=== PATIENT | male | born 1930 | race Caucasian/White ===

== ENCOUNTER 2017-04-04 09:31 | Inpatient (IN) | payer OTHER ==
[~2017-04-04] VITALS: Ht 175.3 cm; Wt 85.8 kg
[2017-04-04] VITALS (9 sets, daily range): BP systolic 137–179; BP diastolic 75–96
--- NOTE | ~2017-04-04 | EKG ---
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
--- NOTE | ~2017-04-04 | 2DMMODE ---
[facility] [address] [place] [address] 2 D/M-MODE ECHOCARDIOGRAM Name: CHRIS ZHONG Room #: 307-P [facility] IN ..#: [id number] Admission: 04/05/17 Attend Phys: Scott Bhatia, Discharge: Date of : 32 Date of Service: 04/05/17 1232 Report #: [id number] THIS REPORT FOR: //name// APPROVED REPORT Study performed: 04/05/2017 10:04:29 EXAM: Comprehensive 2D, Doppler, and color-flow Echocardiogram Patient Location: Bedside Room #: [facility] Status: routine BSA: 2.02 BP: 151/84 mmHg Other Information Study Quality: Technically Difficult Indications Dizziness and Vertigo Hypertension/HDD 2D Dimensions RVDd: 33.22 mm LVEF(%): 69.50 (>50%) IVSd: 13.31 (7-11mm) LVOT Diam: 19.44 (18-24mm) LVDd: 33.31 mm PWd: 12.70 (7-11mm) Ascending Ao: 38.86 (22-36mm) LVDs: 20.63 (25-40mm) Aortic Root: 37.59 mm IVC: 22.00 mm Jurado's LVEF: 69.50 % Volumes Left Atrial Volume (Systole) Single Plane 4CH: 37.89 mL Single Plane 2CH: 35.07 mL LA ESV Index: 20.00 mL/m2 Aortic Valve AoV Peak Jacek.: 2.91 m/s AO Peak Gr.: 33.81 mmHg LVOT Max P.75 mmHg AO Mean Gr.: 18.17 mmHg LVOT Mean P.45 mmHg AO V2 Mean: 2.02 m/s LVOT Max V: 1.09 m/s AO V2 VTI: 61.60 cm LVOT Mean V: 0.72 m/s TAWNY (VTI): 1.34 cm2 LVOT V1 VTI: 27.83 cm TAWNY Vmax: 1.11 cm2 SV (LVOT): 82.53 mL [facility] [place] [address] 2 D/M-MODE ECHOCARDIOGRAM Name: CHRIS ZHONG Room #: 307-P [facility] IN [facility]#: [id number] Admission: 04/05/17 Attend Phys: Scott Bhatia, Discharge: Date of : 31 Date of Service: 04/05/17 1232 Report #: [id number] Mitral Valve E/A Ratio: 0.9 MV Decel. Time: 282.98 ms MV E Max Jacek.: 0.78 m/s MV A Jacek.: 0.91 m/s MV PHT: 82.06 ms IVRT: 72.66 ms Pulmonary Valve PV Peak Jacek.: 0.86 m/s PV Peak Gr.: 2.96 mmHg Pulmonary Vein P Vein S: 0.48 m/s P Vein A: 0.24 m/s P Vein D: 0.39 m/s P Vein A Dur.: 114.2 msec P Vein S/D Ratio: 1.23 Tricuspid Valve TR Peak Jacek.: 2.56 m/s RAP Estimate: 10.00 mmHg TR Peak Gr.: 26.31 mmHg Left Ventricle The left ventricle is normal size. Mild concentric left ventricular hypertrophy. The left ventricular systolic function is normal. The left ventricular ejection fraction is within the normal range. LVEF is 65%. Mild diastolic dysfunction is present (impaired relaxation pattern). Right Ventricle The right ventricle is normal size. The right ventricular systolic function is normal. Atria The left atrium size is normal. The right atrium size is normal. Aortic Valve Aortic valve is calcified. Mild aortic regurgitation. There is moderate to severe valvular aortic stenosis. Calculated aortic valve area is 0.9 cm2 with maximum pressure gradient of 34 mmHg and mean pressure gradient of 18 mmHg. Mitral Valve The mitral valve is normal in structure. There is no mitral valve regurgitation noted. No evidence of mitral [place] [address] 2 D/M-MODE ECHOCARDIOGRAM Name: CHRIS ZHONG Room #: 307-P [facility] IN M.R.#: [id number] Admission: 04/05/17 Attend Phys: Scott Bhatia, Discharge: Date of : 32 Date of Service: 04/05/17 1232 Report #: [id number] Tricuspid Valve Tricuspid valve is not well visualized. There is trace tricuspid regurgitation. The right atrial pressure is estimated at 10 mmHg. PAP is estimated at 36mmHg. Pulmonic Valve The pulmonary valve is normal in structure. Trace pulmonic regurgitation. 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 IVC is dilated and collapses >50% with inspiration. <Conclusion> The left ventricle is normal size. The left ventricular systolic function is normal. The left ventricular ejection fraction is within the normal range. Aortic valve is calcified. Mild aortic regurgitation. There is moderate to severe valvular aortic stenosis. Calculated aortic valve area is 0.9 cm2 with maximum pressure gradient of 34 mmHg and mean pressure gradient of 18 mmHg. The mitral valve is normal in structure. Tricuspid valve is not well visualized. There is trace tricuspid regurgitation. The right atrial pressure is estimated at 10 mmHg. PAP is estimated at 36mmHg. The pulmonary valve is normal in structure. Trace pulmonic regurgitation. 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 <ELECTRONICALLY SIGNED> By: Samy Mayorga MD 04/05/17 1232 1232 1232 Samy Mayorga MD /INF
--- NOTE | ~2017-04-04 | EKG ---
[address] [address] ELECTROCARDIOGRAM REPORT Name: CHRIS ZHONG Room #: 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
[2017-04-04 09:57] LABS: ABSOLUTE NEUTROPHILS 4.8 thou/uL (1.4-8.2); BASOPHILS 0.3 % (0.0-2.0); EOSINOPHILS 1.4 % (0.0-3.0); HEMATOCRIT 44.3 % (42.0-52.0); HEMOGLOBIN 14.9 gm/dL (14.0-18.0); LYMPHOCYTES 18.8 % (24.0-44.0); MCH 29.8 pg (26.0-34.0); MCHC 33.7 g/dL (28.0-37.0); MCV 88.4 fL (80.0-100.0); MONOCYTES 7.3 % (1.0-8.0); PLATELET COUNT 128 thou/uL (150-400); POLYS 72.2 % (36.0-66.0); RBC 5.01 mil/uL (4.50-6.00); RDW 13.9 % (10.5-14.5); WBC 6.6 thou/uL (4.0-11.0)
[2017-04-04 10:05] LABS: ANION GAP 7 mmol/L (7-16); BUN 7 mg/dL (7-18); CALCIUM 8.9 mg/dL (8.5-10.1); CHLORIDE 106 mmol/L (98-107); CO2 27 mmol/L (21-32); CREATININE 0.9 mg/dL (0.7-1.3); GLUCOSE 117 mg/dL (74-106); POTASSIUM 4.2 mmol/L (3.5-5.1); SODIUM 140 mmol/L (136-145)
[2017-04-04] MEDS ORDERED: ZETIA10 MG PO (10:06)
[2017-04-04] MEDS ORDERED: FLOMAX0.4 MG PO (10:06)
[2017-04-04] MEDS ORDERED: FINASTERIDE5 MG PO (10:06)
[2017-04-04] MEDS ORDERED: SYMBICORT160 MCG/4. INH (10:06)
[2017-04-04 10:07] LABS: MANUAL DIFF NO
[2017-04-04] MEDS ORDERED: NEXIUM40 MG PO (10:07)
[2017-04-04 10:15] LABS: ALBUMIN 3.5 g/dL (3.4-5.0); ALKALINE PHOSPHATASE 93 U/L (46-116); SGOT 19 U/L (15-37); SGPT 25 U/L (30-65); TOTAL BILIRUBIN 0.4 mg/dL (<0.1-1.0); TOTAL PROTEIN 6.8 g/dL (6.4-8.2); TROPONIN-I < 0.04 ng/mL (<0.04-0.07)
[2017-04-04 12:49] LABS: URINE BILIRUBIN NEGATIVE (Negative); URINE BLOOD TRACE (Negative); URINE COLOR YELLOW; URINE GLUCOSE-RANDOM* NEGATIVE (Negative); URINE KETONES NEGATIVE (Negative); URINE NITRITE NEGATIVE (Negative); URINE PROTEIN (DIPSTICK) NEGATIVE (Negative); URINE SPECIFIC GRAVITY 1.015 (1.003-1.035); URINE UROBILINOGEN 0.2 E.U./dl (0.2-1.0)
[2017-04-04 13:10] LABS: SSA (PROTEIN CONFIRMATORY) NEGATIVE (Negative)
[2017-04-05] VITALS (7 sets, daily range): BP systolic 148–182; BP diastolic 82–100
[2017-04-06] VITALS (8 sets, daily range): BP systolic 121–199; BP diastolic 76–117
[2017-04-06 04:04] LABS: CALCIUM 8.7 mg/dL (8.5-10.1); CREATININE 0.7 mg/dL (0.7-1.3); POTASSIUM 3.7 mmol/L (3.5-5.1)
[2017-04-06 04:11] LABS: ABSOLUTE NEUTROPHILS 9.3 thou/uL (1.4-8.2); BASOPHILS 0.1 % (0.0-2.0); EOSINOPHILS 0.3 % (0.0-3.0); HEMATOCRIT 43.2 % (42.0-52.0); HEMOGLOBIN 14.6 gm/dL (14.0-18.0); LYMPHOCYTES 11.4 % (24.0-44.0); MCH 29.9 pg (26.0-34.0); MCHC 33.7 g/dL (28.0-37.0); MCV 88.7 fL (80.0-100.0); MONOCYTES 6.1 % (1.0-8.0); PLATELET COUNT 128 thou/uL (150-400); POLYS 82.1 % (36.0-66.0); RBC 4.88 mil/uL (4.50-6.00); RDW 13.7 % (10.5-14.5); WBC 11.3 thou/uL (4.0-11.0)
[2017-04-06 04:13] LABS: MANUAL DIFF NO
[2017-04-06 14:35] LABS: URINE BILIRUBIN NEGATIVE (Negative); URINE BLOOD NEGATIVE (Negative); URINE COLOR YELLOW; URINE GLUCOSE-RANDOM* NEGATIVE (Negative); URINE KETONES TRACE (Negative); URINE LEUKOCYTES-REFLEX 1+ (Negative); URINE PROTEIN (DIPSTICK) NEGATIVE (Negative); URINE UROBILINOGEN 0.2 E.U./dl (0.2-1.0)
[2017-04-06 14:44] LABS: CASTS None Seen /LPF (None Seen); CRYSTALS None Seen /LPF (None Seen); SQUAMOUS None Seen /LPF (0-3); URINE RBC None Seen /HPF (0-2); URINE WBC-REFLEX 6-15 Few /HPF (0-5)
[2017-04-07 04:00] VITALS: BP 117/62
[2017-04-07 08:18] VITALS: BP 129/76
[2017-04-07 15:19] VITALS: BP 114/71
[2017-04-07 19:30] VITALS: BP 115/70
[2017-04-08 04:21] VITALS: BP 119/78
[2017-04-08 08:35] VITALS: BP 150/67
[2017-04-08] MEDS ORDERED: METOPROLOL SUCC50 MG PO (08:45)
[2017-04-08] MEDS ORDERED: ALTACE5 MG PO (08:46)
[2017-04-08] MEDS ORDERED: CIPRO500 MG PO (10:00)
== END 2017-04-08 16:00 | DRG 149 ==
LOC: ER 09:31 → EROBS 12:58 → 3N 13:15
PROVIDERS: Family Medicine; Physician Assistant; Psychiatry & Neurology Neurology
DX: H81.10 Benign paroxysmal vertigo, unspecified ear (principal); N40.0 Benign prostatic hyperplasia without lower urinary tract symptoms; E78.5 Hyperlipidemia, unspecified; J44.9 Chronic obstructive pulmonary disease, unspecified; H53.8 Other visual disturbances; I10 Essential (primary) hypertension; R26.81 Unsteadiness on feet; R53.81 Other malaise; Z87.891 Personal history of nicotine dependence; Z98.42 Cataract extraction status, left eye; Z98.41 Cataract extraction status, right eye
CPT/HCPCS: 10795

== ENCOUNTER 2019-11-03 14:01 | Emergency (ER) | payer OTHER ==
[~2019-11-03] VITALS: Ht 180.3 cm; Wt 82.1 kg
[~2019-11-03 14:01] MED LIST: ALTACE5 MG PO; CIPRO500 MG PO; FINASTERIDE5 MG PO; FLOMAX0.4 MG PO; METOPROLOL SUCC50 MG PO; NEXIUM40 MG PO; SYMBICORT160 MCG/4. INH; ZETIA10 MG PO
[2019-11-03 14:57] LABS: ABSOLUTE NEUTROPHILS 3.7 thou/uL (1.4-8.2); BASOPHILS 0.2 % (0.0-2.0); EOSINOPHILS 1.5 % (0.0-3.0); HEMATOCRIT 43.4 % (42.0-52.0); HEMOGLOBIN 14.3 gm/dL (14.0-18.0); MCH 29.7 pg (26.0-34.0); MCHC 32.9 g/dL (28.0-37.0); MCV 90.5 fL (80.0-100.0); MONOCYTES 8.4 % (1.0-8.0); PLATELET COUNT 145 thou/uL (150-400); POLYS 64.9 % (36.0-66.0); RDW 13.9 % (10.5-14.5); WBC 5.8 thou/uL (4.0-11.0)
[2019-11-03 15:01] LABS: CALCIUM 8.9 mg/dL (8.5-10.1); CREATININE 0.8 mg/dL (0.7-1.3); POTASSIUM 4.3 mmol/L (3.5-5.1)
--- NOTE | 2019-11-03 17:22 | EKG ---
[facility] [place] [address] ELECTROCARDIOGRAM REPORT Name: CHRIS ZHONG Room #: [facility]#: [id number] Admission: 11/03/19 Attend Phys: Discharge: Date of : 31 Report #: [id number] THIS REPORT FOR: cc: Rafiq Rodriguez MD, Kirk D. MD Couchonnal, Luis F. 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: [facility] : 1930 Requested By: Cleopatra Owens Order Number: [id number] MD: Jeffery Irizarry Measurements Intervals [place] Rate: 67 P: 40 AR: 172 QRS: 1 QRSD: 97 T: 30 QT: 409 QTc: 432 Interpretive Statements Sinus rhythm Probable left atrial enlargement Compared to ECG 04/05/2017 23:50:36 No significant changes Electronically Signed On 11-03-2019 17:21:40 CDT by Jeffery Irizarry [email or web address] <ELECTRONICALLY SIGNED> By: Jeffery Irizarry MD 11/03/19 1721 1442 144 Jeffery Irziarry MD /EPI
[2019-11-03 19:15] VITALS: BP 180/93
== END 2019-11-03 19:15 | disposition home or self-care (01) ==
LOC: ER 14:01
PROVIDERS: Student in an Organized Health Care Education/Training Program
DX: S72.032A Displaced midcervical fracture of left femur, initial encounter for closed fracture (principal); W01.0XXA Fall on same level from slipping, tripping and stumbling without subsequent striking against object, initial encounter; Y93.89 Activity, other specified; Y92.89 Other specified places as the place of occurrence of the external cause; Y99.8 Other external cause status

== ENCOUNTER 2021-04-25 07:50 | Inpatient (IN) | payer OTHER ==
[~2021-04-25] VITALS: Ht 177.8 cm; Wt 86.2 kg
--- NOTE | ~2021-04-25 | EMS ---
[place] [address] EMS Patient Care Report Name: CHRIS ZHONG Room #: 451-P ADM IN ..#: [id number] Admission: 04/25/21 Attend Phys: Chidi Zamudio MD Discharge: Date of : 31 Report #: [id number] THIS REPORT FOR: //name// Report Transmitted: 04/26/2021 08:51 EMS Care Summary [place], [place]/[facility] Incident [id number] @ 04/25/2021 07:09 Incident Location [address] Patient CHRIS ZHONG Male, 89 Years 1930 Patient Address [address] [facility] [address] [place] [address] Patient History Deep Vein Thrombosis,Enlarged prostate, Patient Allergies No known allergies, Patient Medications Coumadin, Chief Complaint GENERALIZED WEAKNESS Disposition Transported No Lights/[place] Dispatch Reason Sick Person Transported To [facility] Narrative UPON ARRIVAL WE FOUND OUR 89 YEAR OLD MALE PATIENT SITTING IN AN OFFICE CHAIR COVERED IN FECES AND URINE COMPLAINING OF BEING TOO WEAK TO AMBULATE. THE PATIENT IS A&OX3-GCS 15 AND IS ABLE ALL 4 EXTREMITIES. [place] [address] EMS Patient Care Report Name: CHRIS ZHONG Room #: 451-P [facility] IN Tiny.#: [id number] Admission: 04/25/21 Attend Phys: Chidi Zamudio MD Discharge: Date of : 31 Report #: [id number] CP, ABD PAIN, SYNCOPE, SOA, COUGH, FEVER, CHILLS, ANOSMIA, N/V/D, BLOODY STOOLS, OR RECENT ILLNESS. THE PATIENT REQUESTS TRANSPORT TO [facility] FOR EVALUATION. Initial Vitals @07:40P: 140,CO: 1,SpO2: 91, @07:35P: 121,R: 18,BP: 133/82,Pain: 0/10,GCS: 15,Glucose: 113,CO: 2,SpO2: 93,Revised Trauma: 12,FL Suspected: false @07:35P: 116,R: 18,BP: 127/81,Pain: 0/10,GCS: 15,SpO2: 94,Revised Trauma: 12,FL Suspected: false Assessments @07:28MENTAL:Place Oriented,Person Oriented,Event Oriented,Time Oriented,SKIN:HEENT:Eyes: Right Pupil: 4-mm,Eyes: Left Pupil: 4-mm,Head/Face: No Abnormalities,Neck/Airway: No Abnormalities,LUNG SOUNDS:General: No Abnormalities,ABDOMEN:General: No Abnormalities,PELVIS//GI:Incontinence,EXTREMITIES:Left Arm: No Abnormalities,Right Arm: No Abnormalities,Left Leg: No Abnormalities,Right Leg: No Abnormalities,PULSE:Radial: 2+ Normal,NEURO: Impression Generalized Weakness Procedures @07:28ALS AssessmentResponse: UnchangedSucceeded@07:353-Lead ECGResponse: UnchangedSucceeded Timeline 07:08,Call Received 07:08,Dispatch Notified 07:09,Dispatched 07:11,En Route 07:19,On Scene 07:28,At Patient 07:28,ALS Assessment,Response: UnchangedSucceeded, 07:35,3-Lead ECG,Response: UnchangedSucceeded, 07:35,BP: 133/82 M,PULSE: 121,RR: 18 R,SPO2: 93 Ox,ETCO2: ,B,PAIN: 0,GCS: 15, 07:35,BP: 127/81 M,PULSE: 116,RR: 18 R,SPO2: 94 Ox,ETCO2: ,BG: ,PAIN: 0,GCS: 15, 07:39,Depart Scene 07:40,BP: / M,PULSE: 140,RR: R,SPO2: 91 Ox,ETCO2: ,BG: ,PAIN: ,GCS: , 07:46,At Destination 08:00,Call Closed Disclaimer [address] [place] [address] EMS Patient Care Report Name: CHRIS ZHONG Room #: 451-P ADM IN [facility]#: [id number] Admission: 04/25/21 Attend Phys: Chidi Zamudio MD Discharge: Date of : 31 Report #: [id number] v1.1 Copyright 2020 [employer] This EMS Care Summary contains data elements from the applicable legal record (which may be displayed differently). It is designed to provide pertinent information for the following purposes: continuity of care, clinical quality, and state data reporting. The complete legal record is available to ED staff and administrators of the receiving hospital in [facility]'s Patient Tracker. All data is provided "as is."
[2021-04-25 07:51] VITALS: BP 142/70
[2021-04-25 08:20] LABS: HEMOGLOBIN 14.6 gm/dL (14.0-18.0); MCH 29.5 pg (26.0-34.0); MCHC 33.2 g/dL (28.0-37.0); MCV 88.7 fL (80.0-100.0); RBC 4.96 mil/uL (4.50-6.00); RDW 13.8 % (10.5-14.5)
[2021-04-25 08:30] LABS: CALCIUM 8.9 mg/dL (8.5-10.1); CREATININE 0.9 mg/dL (0.7-1.3); POTASSIUM 4.2 mmol/L (3.5-5.1)
[2021-04-25 08:37] LABS: URINE BILIRUBIN NEGATIVE (Negative); URINE BLOOD NEGATIVE (Negative); URINE CLARITY CLEAR; URINE COLOR YELLOW; URINE GLUCOSE-RANDOM* NEGATIVE (Negative); URINE KETONES 1+ (Negative); URINE LEUKOCYTES-REFLEX NEGATIVE (Negative); URINE NITRITE-REFLEX NEGATIVE (Negative); URINE PROTEIN (DIPSTICK) NEGATIVE (Negative)
[2021-04-25 08:39] LABS: ALBUMIN 3.5 g/dL (3.4-5.0); TOTAL BILIRUBIN 0.7 mg/dL (0.2-1.0)
--- NOTE | 2021-04-25 08:42 | EKG ---
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 : 1930 Requested By: Apoorva Kaur Order Number: [id number] MD: Bret Miller Measurements Intervals [place] Rate: 110 P: 54 TN: 158 QRS: -28 QRSD: 85 T: 57 QT: 326 QTc: 442 Interpretive Statements Sinus tachycardia Nonspecific ST segment abnormality Compared to ECG 11/03/2019 14:42:33 Heart rate has increased Electronically Signed On 04-25-2021 8:42:22 CDT by Bret Miller [email or web address] <ELECTRONICALLY SIGNED> By: Bret Miller MD, [facility] 04/25/21 0842 [phone] Bret Miller MD, FACC /EPI
[2021-04-25 13:39] VITALS: BP 111/60
[2021-04-25 14:02] VITALS: BP 122/68
[2021-04-25 14:35] VITALS: BP 120/63
[2021-04-25 17:38] VITALS: BP 157/81
--- NOTE | 2021-04-25 17:56 | NUR ---
PT UP TO FLOOR THIS AFTERNOON. PT A&OX4. PT UP WITH CONTACT GUARD ASSIST TO BATHROOM. PT DOES HAVE NON PITTING EDEMA TO BLE, LLE WORSE THAN RIGHT.PT STATES HE DOES WEAR SUPPORT HOSE. PT DENIES PAIN. [place]. PT HAS DENTURES, AND GLASSES. WILL CONTINUE TO MONITOR.
[2021-04-25 19:34] VITALS: BP 145/74
--- NOTE | 2021-04-26 02:24 | NUR ---
PT CARE ASSUMED WITH PT IN BED WITH DTR AT BEDSIDE.PT IS A/O X4 AND FORGETFUL .PT IS UP WITH 1 ASSIST TO THE BATHROOM AND USES A WALKER.IV ACCESS ON RAC SL.PT IS 2L OF O2 VIA NC.DTR WILL BRING LIST OF PT MEDICATIONS TODAY.WILL CONTINUE TO MONITOR PER POC
[2021-04-26 06:48] LABS: HEMATOCRIT 37.7 % (42.0-52.0); HEMOGLOBIN 12.7 gm/dL (14.0-18.0); MCH 30.6 pg (26.0-34.0); MCHC 33.7 g/dL (28.0-37.0); MCV 90.8 fL (80.0-100.0); RBC 4.15 mil/uL (4.50-6.00); RDW 13.9 % (10.5-14.5); WBC 10.1 thou/uL (4.0-11.0)
[2021-04-26 06:53] LABS: CALCIUM 8.1 mg/dL (8.5-10.1); CREATININE 0.7 mg/dL (0.7-1.3); POTASSIUM 4.2 mmol/L (3.5-5.1)
[2021-04-26 07:50] VITALS: BP 140/76
[2021-04-26] MEDS ORDERED: ECOTRIN325 MG PO ×2 (11:34→11:59)
[2021-04-26] MEDS ORDERED: NEXIUM 40 MG CA40 M1 PO (12:01)
--- NOTE | 2021-04-26 12:05 | NUR ---
Alert and orientated X4. Calm, cooperative and compliant. Ambulated with PT with steady gait. Breath sounds clear. Reg HR with murmur auscultated. Color pink with brisk capillary refill and palpable peripheral pulses. +1 edema in ankles. Saline lock per R AC soft and flat, withdraws and flushes without difficulty, small amt serosangious drainage at site, site cleaned and redressed with tegaderm. Independent with voiding. Active bowel sounds over soft, rounded abdomen. Daughter at bedside, appropriate questions and concerns. Med list obtained, Dr. Nelson aware and here talking with pt.
--- NOTE | 2021-04-26 14:45 | NUR ---
PT ADMITTED RELATED TO WEAKNESS. CM REVIEWED CHART AND SPOKE WITH CARE TEAM. CM MET WITH PT AND DTR AT BEDSIDE THIS DAY. PT APPEARED TO BE A&O X4. CM ROLE INTRODUCED. PT INDICATED [place]IVES [place] AT [facility]. 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 PT INDICATED NO DME. PT HAD HH IN THET PAST BUT COULDN'T RECALL PROVIDER. PT'S PCP IS DR. SIMPSON AT [facility]. PT INDICATED HE PLANS TO RETURN HOME ONCE MEDICALLY STABLE. CM FOLLOWING RELATED TO DC PLANNING.
[2021-04-26 15:50] VITALS: BP 165/90
[2021-04-26 18:30] VITALS: BP 151/86
[2021-04-26 19:58] VITALS: BP 173/90
--- NOTE | 2021-04-27 02:53 | NUR ---
ASSUMED PT CARE AT 1910. PT IS ALERT AND ORIENTED x4. PT IS UPX1 WITH GB AND WALKER. PT CAN SOMETIMES BE NON-COMPLIANT WITH THE USE OF CALL LIGHT. PT RE-EDUCATED ON THE USE OF CALL LIGHT. PT IS EMMONAK. PT IS TOLERATING RA. FALL PRECAUTIONS IN PLACE WITH CALL LIGHT WITHIN REACH. VISIBLE SIGN OF DISTRESS WAS NOTED. WILL CONTINUE TO MONITOR.
[2021-04-27 05:45] VITALS: BP 172/85
[2021-04-27 07:40] VITALS: BP 165/76
[2021-04-27 12:05] VITALS: BP 162/80
[2021-04-27 12:13] VITALS: BP 165/76
[2021-04-27] MEDS ORDERED: CEFDINIR300 MG PO (14:29)
--- NOTE | 2021-04-27 15:55 | NUR ---
CARE TEAM INDICATED THAT PT IS MEDICALLY STABLE TO DC HOME THIS DAY. PT TO HAVE [facility]. THEY ARE ABLE TO ACCEPT PT UPON DC. PT'S DTR AND PT ARE AWARE AND AGREEABLE. PT'S DTR TO PROVIDE TRANPORT HOME THIS DAY. CASE CLOSED.
== END 2021-04-27 15:53 | disposition home health service (06) | DRG 193 ==
LOC: ER 07:50 → EROBS 14:32 → 4W 14:32
PROVIDERS: Hospitalist; Student in an Organized Health Care Education/Training Program; ADMIT Hospitalist; ATTEND Hospitalist
DX: J18.9 Pneumonia, unspecified organism (principal); J96.01 Acute respiratory failure with hypoxia; R65.10 Systemic inflammatory response syndrome (SIRS) of non-infectious origin without acute organ dysfunction; Z20.822 Contact with and (suspected) exposure to COVID-19; I10 Essential (primary) hypertension; N40.0 Benign prostatic hyperplasia without lower urinary tract symptoms; R53.81 Other malaise; K21.9 Gastro-esophageal reflux disease without esophagitis; E55.9 Vitamin D deficiency, unspecified; Z88.8 Allergy status to other drugs, medicaments and biological substances; Z83.3 Family history of diabetes mellitus; Z79.82 Long term (current) use of aspirin; Z79.899 Other long term (current) drug therapy
CPT/HCPCS: 10045